=== PATIENT | female | born 2000 | race Two or more races ===

== ENCOUNTER 2022-02-22 22:50 | Emergency (ER) | payer SELFPAY ==
[2022-02-22] MEDS ORDERED: Sodium Chloride 0.9% 10 ML Syringe FLUSH PRN (23:29)
[2022-02-22] MEDS ORDERED: Sodium Chloride 0.9% 1,000 ML IV SCH (23:30)
[2022-02-23 00:04] LABS: ESTIMATED GFR > 60 (>60)
[2022-02-23 00:16] LABS: CORONAVIRUS COVID-19 NAA NEGATIVE (NEGATIVE)
== END 2022-02-23 01:30 | disposition home or self-care (01) ==
LOC: JP.ED 22:50
DX: A08.4 Viral intestinal infection, unspecified (principal); Z20.822 Contact with and (suspected) exposure to COVID-19
CPT/HCPCS: 0241U; 36415; 80053; 81001; 85025; 86140; 87081; 87880; 99282; 99284; J7030